=== PATIENT | male | born 1970 | race Caucasian/White ===

== ENCOUNTER 2017-02-20 21:48 | Emergency (ER) | payer OTHER ==
[2017-02-20 23:49] VITALS: BP 123/76
--- NOTE | 2017-02-24 10:24 | ED ---
Rebekah Molina Thomas, scribed for Ney Muñoz MD on 02/20/17 at 2346 . Throat Pain/Nasal Congestion - HPI Summary HPI Summary: The pt is a 46 y/o M presenting to the ED c/o sore throat that began 3 days ago. The pt has been taking ibuprofen 1x every 6 hours to minimal relief of pain. Additionally c/o fever (afebrile in the ED), ear pain, and painful swallowing (5/10 when swallowing). The pt is from [place] and is visiting colleges with his daughter. The pt reports recent contact with sick individuals. The pt denies any PMHx. SHx: no smoking, no drinking - History of Current Complaint Chief Complaint: EDThroatPain Time Seen by Provider: 02/20/17 23:38 Hx Obtained From: Patient Onset/Duration: Lasting Days - 3 days, Still Present Associated Signs And Symptoms: Positive: Dysphagia Cough: None - Allergies/Home Medications Allergies/Adverse Reactions: Allergies Allergy/AdvReac Type Severity Reaction Status Date / Time No Known Allergies Allergy Verified 02/20/17 22:05 PMH/Surg Hx/FS Hx/Imm Hx Previously Healthy: No Respiratory History: Denies: Hx Chronic Obstructive Pulmonary Disease (COPD) Opthamlomology History: Denies: Hx Legally Blind Infectious Disease History: Reports: Traveled Outside the [place] in Last 30 Days - Family History Known Family History: Negative: Cardiac Disease, Diabetes - Social History Lives: With Family Alcohol Use: None Hx Tobacco Use: No Review of Systems Positive: Fever - afebrile in ED, pt claims a fever [place]. Negative: Chills Eyes: Negative Negative: Erythema ENT: Other - POS: painful swallowing Positive: Sore Throat - onset 3 days ago, Ear Ache Cardiovascular: Negative Negative: Chest Pain Respiratory: Negative Negative: Shortness Of Breath Gastrointestinal: Negative Negative: Abdominal Pain, Diarrhea, Nausea Genitourinary: Negative Negative: dysuria, hematuria Musculoskeletal: Negative Negative: Myalgia, Edema - leg Skin: Negative Negative: Rash Neurological: Negative, Other - NEG: dizziness Psychological: Normal All Other Systems Reviewed And Are Negative: Yes Physical Exam - Summary Physical Exam Summary: Constitutional: Well-developed, Well-nourished, Alert. (-) Distressed Skin: Warm, Dry HENT: Minimal exudate and erythema; No peritonsillar abscess. Normocephalic; Atraumatic Eyes: Conjunctiva normal Neck: Anterior cerical lymphadenopathy; mildly swollen lymph nodes. Musculoskeletal ROM normal neck. (-) JVD, (-) Stridor, (-) Tracheal deviation Cardio: Rhythm regular, rate normal, Heart sounds normal; Intact distal pulses; The pedal pulses are 2+ and symmetric. Radial pulses are 2+ and symmetric. (-) Murmur Pulmonary/Chest wall: Effort normal. (-) Respiratory distress, (-) Wheezes, (-) Rales Abd: Soft, (-) Tenderness, (-) Distension, (-) Guarding, (-) Rebound Musculoskeletal: (-) Edema Lymph: (-) Cervical adenopathy Neuro: Alert, Oriented x3 Psych: Mood and affect Normal Triage Information Reviewed: Yes Vital Signs On Initial Exam: Initial Vitals Temp Pulse Resp BP Pulse Ox 98.8 F 94 16 131/78 96 02/20/17 22:03 02/20/17 22:03 02/20/17 22:03 02/20/17 22:03 02/20/17 22:03 Vital Signs Reviewed: Yes Diagnostics - Vital Signs Vital Signs Temp Pulse Resp BP Pulse Ox 02/20/17 22:03 98.8 F 94 16 131/78 96 - Laboratory Lab Results: Lab Results 02/20/17 02/20/17 Range/Units 23:05 23:15 Influenza A (Rapid) Negative (Negative) Influenza B (Rapid) Negative (Negative) Group A Strep Rapid Positive H (Negative) Lab Statement: Any lab studies that have been ordered have been reviewed, and results considered in the medical decision making process. EENT Course/Dx - Course Assessment/Plan: The pt is a 46 y/o M presenting to the ED c/o sore throat that began 3 days ago. The pt has been taking ibuprofen 1x every 6 hours to minimal relief of pain. Additionally c/o fever (afebrile in the ED), ear pain, and painful swallowing (5/10 when swallowing). The pt is from [place] and is visiting colleges with his daughter. The pt reports recent contact with sick individuals. The pt denies any PMHx. SHx: no smoking, no drinking. The pt was discharged home stable with a diagnosis of Strep pharyngitis. The Pt was told to take 3 Ibuprofen every 6 hours and to return to the ED if he is having any new or worsening symptoms. - Diagnoses Provider Diagnoses: Strep pharyngitis Discharge - Discharge Plan Condition: Stable Disposition: HOME Prescriptions: Penicillin VK TAB* [Penicillin VK 250 mg Tab*] 500 mg PO BID #20 tab Patient Education Materials: Pharyngitis (ED) Additional Instructions: [facility] pharmacy, address [address] [place] [address], opens tomorrow at 8:30am. Your prescription will be there. Take 3 Ibuprofen every 6 hours as needed for pain. RETURN TO THE EMERGENCY DEPARTMENT IF YOU HAVE ANY NEW OR WORSENING SYMPTOMS. The documentation as recorded by the Rebekah lopez Thomas accurately reflects the service I personally performed and the decisions made by , Ney Muñoz MD.
== END 2017-02-21 00:15 | disposition home or self-care (01) ==
LOC: ED 21:48
DX: J02.0 Streptococcal pharyngitis (principal); J02.9 Acute pharyngitis, unspecified; R13.10 Dysphagia, unspecified
CPT/HCPCS: 87502; 87651; 99282